=== PATIENT | male | born 1955 | race Asian ===

== ENCOUNTER 2023-12-25 02:52 | Inpatient (IN) | payer MEDICAID ==
[~2023-12-25] VITALS: Ht 162.6 cm; Wt 71.3 kg
[2023-12-25 03:23] LABS: BASOPHILS % (AUTO) 0.5 % (0.0-2.0); EOSINOPHILS % (AUTO) 3.7 % (1.0-6.0); HEMATOCRIT 44.3 % (41-53); HEMOGLOBIN 14.9 g/dL (13.5-17.5); LYMPHOCYTES # (AUTO) 2.3 K/uL (1.0-4.8); LYMPHOCYTES % (AUTO) 36.1 % (22.0-44.0); MEAN CORPUSCULAR HEMOGLOBIN 27.9 pg (26.0-34.0); MEAN CORPUSCULAR HGB CONC 33.6 G/dL (31.0-37.0); MEAN CORPUSCULAR VOLUME 83 fL (80-100); MONOCYTES # (AUTO) 0.6 K/uL (0.1-1.0); MONOCYTES % (AUTO) 9.4 % (2.0-9.0); NEUTROPHILS # (AUTO) 3.2 K/uL (1.8-7.7); NEUTROPHILS % (AUTO) 50.3 % (40.0-70.0); PLATELET COUNT (AUTO) 141 K/uL (150-450); RED BLOOD CELL COUNT(AUTO) 5.34 MIL/uL (4.50-5.90); RED CELL DISTRIBUTION WIDTH 13.3 % (11.5-14.5); WHITE BLOOD COUNT (AUTO) 6.4 K/uL (4.5-11.0)
[2023-12-25 03:35] LABS: ANION GAP 4 mmol/L (8-16); CALCIUM, TOTAL 8.4 mg/dL (8.8-10.5); CARBON DIOXIDE 33 mmol/L (22-29); CHLORIDE 98 mmol/L (98-107); CREATININE 1.11 mg/dL (0.60-1.30); GLOMERULAR FILTR. RATE CALC > 60 mL/min (>60); GLUCOSE,RANDOM 231 mg/dL (70-110); POTASSIUM 3.4 mmol/L (3.5-5.1); SODIUM SERUM 135 mmol/L (136-145); UREA NITROGEN, BLOOD 17 mg/dL (7-18)
[2023-12-25 03:55] LABS: TROPONIN I-HIGH SENSITIVITY 5 ng/L (<76)
[2023-12-25] MEDS: LORazepam 1 MG TABLET PO ONE (04:14)
[2023-12-25] MEDS: TraMADol HCL 50 MG TABLET PO ONE (04:14)
[2023-12-25] MEDS: ASPIRIN 81 MG CHEWABLE TABLET PO ONE (04:15)
[2023-12-25] MEDS ORDERED: IOHEXOL 350 MG/ML 100 ML VIAL ONE (05:07)
[2023-12-25] MEDS ORDERED: SODIUM CHLORIDE 0.9% 100 ML ONE (05:07)
[2023-12-25] MEDS: KETOROLAC TROMETHAMINE 30 MG/ML VIAL IVP ONE (06:33)
[2023-12-25 07:34] LABS: TROPONIN I-HIGH SENSITIVITY 6 ng/L (<76)
[2023-12-25] MEDS ORDERED: POTASSIUM CHL 10 MEQ/WATER 50 ML IV PRN (08:30)
[2023-12-25] MEDS: METOPROLOL TARTRATE 25 MG TABLET PO SCH (08:31)
[2023-12-25 10:50] VITALS: BP 150/90; PULSE 69; RESP 18; TEMP 98.2
[2023-12-25] MEDS ORDERED: MORPHINE SULFATE 2 MG/ML SYRINGE IVP PRN (13:45)
[2023-12-25] MEDS ORDERED: HYDROCODONE/ACETAMINOPHEN 5-325 MG TABLET PO PRN (13:45)
[2023-12-25] MEDS ORDERED: BISACODYL 10 MG RECTAL RECTAL SUPPOSITORY PR PRN (13:45)
[2023-12-25] MEDS ORDERED: ACETAMINOPHEN 325 MG TABLET PO PRN (13:45)
[2023-12-25] MEDS ORDERED: ONDANSETRON HCL 4 MG/2 ML VIAL IVP PRN (13:45)
[2023-12-25] MEDS ORDERED: MAGNESIUM HYDROXIDE SUSPENSION 30 ML UDCUP PO PRN (13:45)
[2023-12-25 15:06] VITALS: BP 124/77; PULSE 70; RESP 16; TEMP 98
[2023-12-25 15:20] VITALS: BP 124/77; PULSE 70; RESP 16; TEMP 98
[2023-12-25] MEDS ORDERED: DAPA10TA PO (15:49)
[2023-12-25] MEDS ORDERED: GLIP-197 PO (15:50)
[2023-12-25] MEDS ORDERED: SEMA7TAB2 PO (15:51)
[2023-12-25] MEDS ORDERED: ICOS1CAP PO (15:56)
[2023-12-25] MEDS ORDERED: ROSU20TA73 PO (15:56)
[2023-12-25] MEDS ORDERED: LISI-660 PO (15:56)
[2023-12-25] MEDS ORDERED: AMLO-258 PO (15:56)
[2023-12-25] MEDS ORDERED: INSU100I26 SQ (15:56)
[2023-12-25] MEDS ORDERED: ERGO500093 PO (15:56)
[2023-12-25] MEDS ORDERED: METF-910 PO (15:56)
[2023-12-25] MEDS ORDERED: OMEP20 PO (15:56)
[2023-12-25] MEDS: POTASSIUM CHLORIDE 20 MEQ ER TABLET PO PRN (16:32)
[2023-12-25] MEDS: HEPARIN SODIUM,PORCINE 5,000 UNITS/ML VIAL SQ SCH (16:32)
[2023-12-25] MEDS ORDERED: DEXTROSE 50%-WATER 25 GM/50 ML SYRINGE IVP PRN (16:45)
[2023-12-25] MEDS ORDERED: GlipiZIDE 10 MG TABLET PO SCH (17:30)
[2023-12-25] MEDS ORDERED: MetFORMIN HCL 500 MG ER TABLET PO SCH (18:00)
[2023-12-25] MEDS: INSULIN LISPRO 100 UNITS/ML SQ PRN (18:42)
[2023-12-25 19:25] VITALS: BP 128/77; PULSE 74; RESP 18; TEMP 97.9
[2023-12-25] MEDS: DOCUSATE SODIUM 100 MG CAPSULE PO SCH (21:00)
[2023-12-25] MEDS ORDERED: ROSUVASTATIN CALCIUM 20 MG TABLET PO SCH (21:00)
[2023-12-25] MEDS: ZOLPIDEM TARTRATE 5 MG TABLET PO PRN (22:56)
[2023-12-25 23:05] VITALS: BP 126/83; PULSE 66; RESP 19; TEMP 97.9
[2023-12-26 00:19] VITALS: BP 121/85; PULSE 70; RESP 18; TEMP 97.9
[2023-12-26 04:15] VITALS: BP 117/74; PULSE 72; RESP 18; TEMP 97.6
[2023-12-26 06:26] LABS: GLUCOMETER DEV NAME(LOC) 5S.2D; GLUCOSE,POINT OF CARE 163 MG/DL (70-110)
[2023-12-26 06:26] LABS: GLUCOMETER DEV NAME(LOC) 5S.2D; GLUCOSE,POINT OF CARE 207 MG/DL (70-110)
[2023-12-26 06:26] LABS: GLUCOMETER DEV NAME(LOC) 5S.2D; GLUCOSE,POINT OF CARE 163 MG/DL (70-110)
[2023-12-26 06:26] LABS: BASOPHILS % (AUTO) 0.6 % (0.0-2.0); EOSINOPHILS % (AUTO) 4.4 % (1.0-6.0); HEMATOCRIT 44.6 % (41-53); LYMPHOCYTES # (AUTO) 1.9 K/uL (1.0-4.8); LYMPHOCYTES % (AUTO) 32.9 % (22.0-44.0); MEAN CORPUSCULAR HEMOGLOBIN 27.8 pg (26.0-34.0); MEAN CORPUSCULAR HGB CONC 33.6 G/dL (31.0-37.0); MEAN CORPUSCULAR VOLUME 83 fL (80-100); MONOCYTES # (AUTO) 0.5 K/uL (0.1-1.0); MONOCYTES % (AUTO) 9.6 % (2.0-9.0); NEUTROPHILS % (AUTO) 52.5 % (40.0-70.0); PLATELET COUNT (AUTO) 138 K/uL (150-450); RED BLOOD CELL COUNT(AUTO) 5.38 MIL/uL (4.50-5.90); RED CELL DISTRIBUTION WIDTH 13.7 % (11.5-14.5); WHITE BLOOD COUNT (AUTO) 5.7 K/uL (4.5-11.0)
[2023-12-26] MEDS ORDERED: OMEPRAZOLE 20 MG CAPSULE PO SCH (06:30)
[2023-12-26 06:39] LABS: ANION GAP 10 mmol/L (8-16); CALCIUM, TOTAL 8.2 mg/dL (8.8-10.5); CARBON DIOXIDE 29 mmol/L (22-29); CHLORIDE 101 mmol/L (98-107); CREATININE 0.78 mg/dL (0.60-1.30); GLOMERULAR FILTR. RATE CALC > 60 mL/min (>60); GLUCOSE,RANDOM 151 mg/dL (70-110); SODIUM SERUM 140 mmol/L (136-145); UREA NITROGEN, BLOOD 14 mg/dL (7-18)
[2023-12-26 06:50] LABS: TROPONIN I-HIGH SENSITIVITY 6 ng/L (<76)
[2023-12-26] MEDS: PANTOPRAZOLE SODIUM 40 MG DR TABLET PO SCH (07:52)
[2023-12-26 08:07] VITALS: BP 113/77; PULSE 69; RESP 18; TEMP 97.7
[2023-12-26] MEDS ORDERED: DAPAGLIFLOZIN PROPANEDIOL 5 MG TABLET PO SCH (09:00)
[2023-12-26] MEDS ORDERED: AmLODIPine BESYLATE 10 MG TABLET PO SCH (09:00)
[2023-12-26] MEDS ORDERED: INSULIN GLARGINE,HUM.REC.ANLOG 100 UNITS/ML SQ SCH (09:00)
[2023-12-26] MEDS ORDERED: LISINOPRIL 5 MG TABLET PO SCH (09:00)
[2023-12-26 11:29] VITALS: BP 145/90; PULSE 67; RESP 18; TEMP 97.9
[2023-12-26] MEDS ORDERED: METO25 PO (11:52)
[2023-12-26] MEDS ORDERED: AZIT500T4 PO (11:53)
[2023-12-26 17:30] LABS: GLUCOMETER DEV NAME(LOC) 5S.1B; GLUCOSE,POINT OF CARE 178 MG/DL (70-110)
[2024-01-01] MEDS ORDERED: ERGOCALCIFEROL (VIT D2) 50,000 UNITS [1,250 MCG] CAPSULE PO SCH (09:00)
== END 2023-12-26 12:50 | disposition home or self-care (01) | DRG 145 ==
LOC: EMS 02:52 → EDH 08:54 → 5S 10:00
PROVIDERS: ADMIT Internal Medicine; ATTEND Internal Medicine
DX: R07.81 Pleurodynia (principal); I20.0 Unstable angina; M94.0 Chondrocostal junction syndrome [Tietze]; E11.65 Type 2 diabetes mellitus with hyperglycemia; E87.6 Hypokalemia; I10 Essential (primary) hypertension; J40 Bronchitis, not specified as acute or chronic; K21.9 Gastro-esophageal reflux disease without esophagitis; R32 Unspecified urinary incontinence; E78.5 Hyperlipidemia, unspecified; Z79.84 Long term (current) use of oral hypoglycemic drugs; Z79.899 Other long term (current) drug therapy
CPT/HCPCS: 71045; 71275; 80048; 82962; 83880; 84132; 84484; 85025; 85379; 93005; 93306; 99281; 99285; G0378; J1644; J1885; J7050; 36415-L1; 36415-TC

== ENCOUNTER 2024-02-02 03:02 | Inpatient (IN) | payer MEDICAID ==
[~2024-02-02] VITALS: Ht 162.6 cm; Wt 67.1 kg
[~2024-02-02 03:02] MED LIST: AZIT500T4 PO; DAPA10TA PO; ERGO500093 PO; GLIP-197 PO; ICOS1CAP PO; INSU100I26 SQ; METF-910 PO; METO25 PO; OMEP20 PO; ROSU20TA73 PO; SEMA7TAB2 PO
[2024-02-02 03:28] LABS: BASOPHILS % (AUTO) 0.4 % (0.0-2.0); EOSINOPHILS % (AUTO) 3.5 % (1.0-6.0); HEMATOCRIT 30.3 % (41-53); HEMOGLOBIN 9.7 g/dL (13.5-17.5); LYMPHOCYTES # (AUTO) 1.7 K/uL (1.0-4.8); LYMPHOCYTES % (AUTO) 45.5 % (22.0-44.0); MEAN CORPUSCULAR HEMOGLOBIN 27.4 pg (26.0-34.0); MEAN CORPUSCULAR HGB CONC 31.9 G/dL (31.0-37.0); MEAN CORPUSCULAR VOLUME 86 fL (80-100); MONOCYTES # (AUTO) 0.3 K/uL (0.1-1.0); MONOCYTES % (AUTO) 7.7 % (2.0-9.0); NEUTROPHILS # (AUTO) 1.6 K/uL (1.8-7.7); NEUTROPHILS % (AUTO) 42.9 % (40.0-70.0); RED BLOOD CELL COUNT(AUTO) 3.54 MIL/uL (4.50-5.90); RED CELL DISTRIBUTION WIDTH 13.3 % (11.5-14.5)
[2024-02-02 03:30] LABS: PLATELET COUNT (AUTO) 80 K/uL (150-450); WHITE BLOOD COUNT (AUTO) 3.8 K/uL (4.5-11.0)
[2024-02-02 03:39] LABS: ANION GAP 14 mmol/L (8-16); CALCIUM, TOTAL 6.7 mg/dL (8.8-10.5); CARBON DIOXIDE 26 mmol/L (22-29); CHLORIDE 104 mmol/L (98-107); CREATININE 0.74 mg/dL (0.60-1.30); GLOMERULAR FILTR. RATE CALC > 60 mL/min (>60); GLUCOSE,RANDOM 186 mg/dL (70-110); POTASSIUM 3.1 mmol/L (3.5-5.1); SODIUM SERUM 144 mmol/L (136-145); UREA NITROGEN, BLOOD 12 mg/dL (7-18)
[2024-02-02] MEDS: FAMOTIDINE 20 MG TABLET PO ONE (03:43)
[2024-02-02] MEDS: MAG HYDROX/ALUMINUM HYD/SIMETH ES 30 ML SUSPENSION UDCUP PO ONE (03:43)
[2024-02-02] MEDS: PANTOPRAZOLE SODIUM 40 MG/VIAL IVP ONE ×2 (03:43→11:02)
[2024-02-02 03:55] LABS: TROPONIN I-HIGH SENSITIVITY 6 ng/L (<76)
[2024-02-02] MEDS: METOPROLOL SUCCINATE 25 MG ER TABLET PO ONE (04:02)
[2024-02-02] MEDS: AmLODIPine BESYLATE 5 MG TABLET PO ONE (04:02)
[2024-02-02] MEDS ORDERED: MORPHINE SULFATE 2 MG/ML SYRINGE IVP PRN (04:45)
[2024-02-02] MEDS ORDERED: ONDANSETRON HCL 4 MG/2 ML VIAL IVP PRN (04:45)
[2024-02-02] MEDS ORDERED: NITROGLYCERIN 0.4 MG SUBLINGUAL TABLET #25 SL PRN (04:45)
[2024-02-02] MEDS ORDERED: POTASSIUM CHL 10 MEQ/WATER 50 ML IV PRN (05:00)
[2024-02-02] MEDS ORDERED: PANTOPRAZOLE SODIUM 40 MG/VIAL IVP ONE (05:00)
[2024-02-02] MEDS: ATORVASTATIN CALCIUM 40 MG TABLET PO ONE (05:02)
[2024-02-02] MEDS: NITROGLYCERIN 2% (1 GM=INCH) OINTMENT PACKET TP SCH (05:03)
[2024-02-02] MEDS: ASPIRIN 81 MG CHEWABLE TABLET PO ONE (05:03)
[2024-02-02 05:25] LABS: LIPASE 36 U/L (16-77)
[2024-02-02 05:27] LABS: % IRON SATURATION 25.7 % (30-44)
[2024-02-02] MEDS ORDERED: SODIUM CHLORIDE 0.9% 100 ML ONE (05:29)
[2024-02-02] MEDS ORDERED: IOHEXOL 350 MG/ML 100 ML VIAL ONE (05:29)
[2024-02-02 05:43] LABS: BASOPHILS % (AUTO) 0.4 % (0.0-2.0); EOSINOPHILS % (AUTO) 3.4 % (1.0-6.0); HEMATOCRIT 46.7 % (41-53); HEMOGLOBIN 15.4 g/dL (13.5-17.5); LYMPHOCYTES # (AUTO) 1.7 K/uL (1.0-4.8); LYMPHOCYTES % (AUTO) 32.7 % (22.0-44.0); MEAN CORPUSCULAR HEMOGLOBIN 27.6 pg (26.0-34.0); MEAN CORPUSCULAR VOLUME 84 fL (80-100); MONOCYTES # (AUTO) 0.4 K/uL (0.1-1.0); MONOCYTES % (AUTO) 8.7 % (2.0-9.0); NEUTROPHILS # (AUTO) 2.8 K/uL (1.8-7.7); NEUTROPHILS % (AUTO) 54.8 % (40.0-70.0); PLATELET COUNT (AUTO) 124 K/uL (150-450); RED BLOOD CELL COUNT(AUTO) 5.57 MIL/uL (4.50-5.90); RED CELL DISTRIBUTION WIDTH 13.8 % (11.5-14.5); WHITE BLOOD COUNT (AUTO) 5.1 K/uL (4.5-11.0)
[2024-02-02] MEDS ORDERED: HEPARIN SODIUM,PORCINE 5,000 UNITS/ML VIAL SQ SCH (08:00)
[2024-02-02] MEDS: DOCUSATE SODIUM 100 MG CAPSULE PO SCH (11:01)
[2024-02-02 11:22] VITALS: BP 125/77; PULSE 76; RESP 18; TEMP 98.2; O2SAT 97
[2024-02-02 11:46] LABS: GLUCOMETER DEV NAME(LOC) 5S.1C; GLUCOSE,POINT OF CARE 191 MG/DL (70-110)
[2024-02-02] MEDS: POTASSIUM CHLORIDE 20 MEQ ER TABLET PO PRN (12:04)
[2024-02-02] MEDS ORDERED: DEXTROSE 50%-WATER 25 GM/50 ML SYRINGE IVP PRN (13:00)
[2024-02-02 14:45] VITALS: BP 123/74; PULSE 74; RESP 19; TEMP 98; O2SAT 98
[2024-02-02] MEDS: INSULIN LISPRO 100 UNITS/ML SQ PRN (17:38)
[2024-02-02 19:15] VITALS: BP 113/66; PULSE 78; RESP 18; TEMP 97.8; O2SAT 95
[2024-02-02 20:21] LABS: GLUCOMETER DEV NAME(LOC) 5S.1C; GLUCOSE,POINT OF CARE 193 MG/DL (70-110)
[2024-02-02] MEDS: ACETAMINOPHEN 325 MG TABLET PO PRN (20:32)
[2024-02-02] MEDS: METOPROLOL TARTRATE 25 MG TABLET PO SCH (20:32)
[2024-02-02 21:10] LABS: GLUCOMETER DEV NAME(LOC) 5N.2C; GLUCOSE,POINT OF CARE 207 MG/DL (70-110)
[2024-02-03 00:54] VITALS: BP 105/61; PULSE 73; RESP 18; TEMP 97.8; O2SAT 98
[2024-02-03 05:44] VITALS: BP 122/72; PULSE 66; RESP 18; TEMP 97.6; O2SAT 97
[2024-02-03 07:21] LABS: BASOPHILS % (AUTO) 0.3 % (0.0-2.0); EOSINOPHILS % (AUTO) 2.9 % (1.0-6.0); HEMATOCRIT 45.4 % (41-53); HEMOGLOBIN 15.1 g/dL (13.5-17.5); LYMPHOCYTES # (AUTO) 2.2 K/uL (1.0-4.8); LYMPHOCYTES % (AUTO) 30.7 % (22.0-44.0); MEAN CORPUSCULAR HEMOGLOBIN 27.8 pg (26.0-34.0); MEAN CORPUSCULAR HGB CONC 33.3 G/dL (31.0-37.0); MEAN CORPUSCULAR VOLUME 83 fL (80-100); MONOCYTES # (AUTO) 0.6 K/uL (0.1-1.0); MONOCYTES % (AUTO) 8.6 % (2.0-9.0); NEUTROPHILS # (AUTO) 4.1 K/uL (1.8-7.7); NEUTROPHILS % (AUTO) 57.5 % (40.0-70.0); PLATELET COUNT (AUTO) 124 K/uL (150-450); RED BLOOD CELL COUNT(AUTO) 5.44 MIL/uL (4.50-5.90); RED CELL DISTRIBUTION WIDTH 14.1 % (11.5-14.5); WHITE BLOOD COUNT (AUTO) 7.2 K/uL (4.5-11.0)
[2024-02-03 07:26] LABS: ANION GAP 9 mmol/L (8-16); CALCIUM, TOTAL 8.3 mg/dL (8.8-10.5); CARBON DIOXIDE 28 mmol/L (22-29); CHLORIDE 100 mmol/L (98-107); CREATININE 0.86 mg/dL (0.60-1.30); GLOMERULAR FILTR. RATE CALC > 60 mL/min (>60); GLUCOSE,RANDOM 162 mg/dL (70-110); SODIUM SERUM 137 mmol/L (136-145); UREA NITROGEN, BLOOD 17 mg/dL (7-18)
[2024-02-03 07:36] LABS: TROPONIN I-HIGH SENSITIVITY 6 ng/L (<76)
[2024-02-03] MEDS: HEPARIN SODIUM,PORCINE 5,000 UNITS/ML VIAL SQ SCH (08:00)
[2024-02-03] MEDS: PANTOPRAZOLE SODIUM 40 MG DR TABLET PO SCH (08:08)
[2024-02-03] MEDS: ASPIRIN 81 MG CHEWABLE TABLET PO SCH (08:09)
[2024-02-03] MEDS: ATORVASTATIN CALCIUM 40 MG TABLET PO SCH (08:09)
[2024-02-03 08:31] VITALS: BP 120/68; PULSE 71; RESP 18; TEMP 98.1; O2SAT 98
[2024-02-03 11:06] LABS: GLUCOMETER DEV NAME(LOC) 5S.1C; GLUCOSE,POINT OF CARE 175 MG/DL (70-110)
[2024-02-03 11:31] VITALS: BP 112/70; PULSE 67; RESP 18; TEMP 97.3; O2SAT 96
[2024-02-03] MEDS ORDERED: ASPI-1450 PO (11:56)
[2024-02-03 12:56] LABS: GLUCOMETER DEV NAME(LOC) 5S.1C; GLUCOSE,POINT OF CARE 164 MG/DL (70-110)
== END 2024-02-03 12:40 | disposition home or self-care (01) | DRG 198 ==
LOC: EMS 03:02 → EDH 07:03 → 5S 10:00
PROVIDERS: ADMIT Internal Medicine; ATTEND Internal Medicine
DX: I25.110 Atherosclerotic heart disease of native coronary artery with unstable angina pectoris (principal); D61.818 Other pancytopenia; E11.9 Type 2 diabetes mellitus without complications; D64.9 Anemia, unspecified; D72.819 Decreased white blood cell count, unspecified; E78.5 Hyperlipidemia, unspecified; I16.0 Hypertensive urgency; I10 Essential (primary) hypertension; Z79.4 Long term (current) use of insulin; Z79.899 Other long term (current) drug therapy; Z79.84 Long term (current) use of oral hypoglycemic drugs
CPT/HCPCS: 71045; 74177; 80048; 82962; 83036; 83540; 83550; 83690; 83735; 83880; 84132; 84484; 85025; 85045; 87081; 93005; 93306; 99285; C9113; J1644; J7050; 36415-L1; 36415-TC

== ENCOUNTER 2024-02-04 16:05 | Inpatient (IN) | payer MEDICAID ==
[~2024-02-04] VITALS: Ht 175.3 cm; Wt 64.9 kg
[~2024-02-04 16:05] MED LIST changes: +ASPI-1450 PO
[2024-02-04 18:15] LABS: BASOPHILS % (AUTO) 0.4 % (0.0-2.0); EOSINOPHILS % (AUTO) 1.2 % (1.0-6.0); HEMATOCRIT 49.3 % (41-53); HEMOGLOBIN 16.5 g/dL (13.5-17.5); LYMPHOCYTES # (AUTO) 1.7 K/uL (1.0-4.8); LYMPHOCYTES % (AUTO) 17.4 % (22.0-44.0); MEAN CORPUSCULAR HEMOGLOBIN 27.9 pg (26.0-34.0); MEAN CORPUSCULAR HGB CONC 33.5 G/dL (31.0-37.0); MEAN CORPUSCULAR VOLUME 83 fL (80-100); MONOCYTES # (AUTO) 0.8 K/uL (0.1-1.0); MONOCYTES % (AUTO) 8.2 % (2.0-9.0); NEUTROPHILS # (AUTO) 7.1 K/uL (1.8-7.7); NEUTROPHILS % (AUTO) 72.8 % (40.0-70.0); PLATELET COUNT (AUTO) 136 K/uL (150-450); RED BLOOD CELL COUNT(AUTO) 5.91 MIL/uL (4.50-5.90); RED CELL DISTRIBUTION WIDTH 13.8 % (11.5-14.5); WHITE BLOOD COUNT (AUTO) 9.7 K/uL (4.5-11.0)
[2024-02-04 18:17] LABS: COVID AG,FIA SOURCE NASAL SWAB
[2024-02-04 18:25] LABS: ANION GAP 11 mmol/L (8-16); CALCIUM, TOTAL 9.1 mg/dL (8.8-10.5); CARBON DIOXIDE 28 mmol/L (22-29); CHLORIDE 100 mmol/L (98-107); CREATININE 0.96 mg/dL (0.60-1.30); GLOMERULAR FILTR. RATE CALC > 60 mL/min (>60); GLUCOSE,RANDOM 151 mg/dL (70-110); POTASSIUM 4.3 mmol/L (3.5-5.1); SODIUM SERUM 139 mmol/L (136-145); UREA NITROGEN, BLOOD 16 mg/dL (7-18)
[2024-02-04 18:35] LABS: ALCOHOL, BLOOD (SERUM) < 3 mg/dL (0-10)
[2024-02-04 18:40] LABS: SARS-COV2 (COVID) ANTIGEN,FIA Negative (Negative)
[2024-02-04] MEDS: ACETAMINOPHEN 325 MG TABLET PO ONE (19:19)
[2024-02-04] MEDS: METOCLOPRAMIDE HCL 5 MG/ML 2 ML VIAL IVP ONE (19:22)
[2024-02-04] MEDS: SODIUM CHLORIDE 0.9% 1,000 ML IV ONE (19:22)
[2024-02-04] MEDS: KETOROLAC TROMETHAMINE 30 MG/ML VIAL IVP ONE (20:22)
[2024-02-04] MEDS ORDERED: LORazepam 2 MG TABLET PO PRN (21:45)
[2024-02-04] MEDS ORDERED: ZOLPIDEM TARTRATE 10 MG TABLET PO PRN (21:45)
[2024-02-04] MEDS ORDERED: HALOPERIDOL 5 MG TABLET PO PRN (21:45)
[2024-02-05 03:31] VITALS: BP 147/85; PULSE 80; RESP 18; TEMP 97.6; O2SAT 99
[2024-02-05 04:17] VITALS: BP 147/85; PULSE 80; RESP 17; TEMP 97.6; O2SAT 99
[2024-02-05 08:20] LABS: ALCOHOL, URINE DRUG SCREEN NEGATIVE (NEGATIVE); AMPHET/METH SCREEN,URINE NEGATIVE (NEGATIVE); BARBITURATE SCREEN, URINE NEGATIVE (NEGATIVE); BENZODIAZEPINES SCREEN,URINE NEGATIVE (NEGATIVE); CANNABINOID SCREEN,URINE NEGATIVE (NEGATIVE); COCAINE SCREEN,URINE NEGATIVE (NEGATIVE); METHADONE SCREEN, URINE NEGATIVE (NEGATIVE); OPIATE SCREEN,URINE NEGATIVE (NEGATIVE); PHENCYCLIDINE SCREEN,URINE NEGATIVE (NEGATIVE)
[2024-02-05] MEDS ORDERED: MAG HYDROX/ALUMINUM HYD/SIMETH ES 30 ML SUSPENSION UDCUP PO PRN (08:45)
[2024-02-05] MEDS ORDERED: LOPERAMIDE HCL 2 MG CAPSULE PO PRN (08:45)
[2024-02-05] MEDS ORDERED: DOCUSATE SODIUM 100 MG CAPSULE PO PRN (08:45)
[2024-02-05] MEDS ORDERED: BACITRACIN 28 GM OINTMENT TP PRN (08:45)
[2024-02-05] MEDS ORDERED: BENZOCAINE/MENTHOL LOZENGE PO PRN (08:45)
[2024-02-05] MEDS ORDERED: ALBUTEROL SULFATE HFA 90 MCG/PUFF 8 GM INHALER IH PRN (08:45)
[2024-02-05] MEDS ORDERED: PETROLATUM,WHITE 28 GM JELLY TP PRN (08:45)
[2024-02-05] MEDS ORDERED: ACETAMINOPHEN 325 MG TABLET PO PRN (08:45)
[2024-02-05] MEDS ORDERED: OMEPRAZOLE 20 MG CAPSULE PO PRN (08:45)
[2024-02-05] MEDS ORDERED: CloNIDine HCL 0.1 MG TABLET PO PRN (08:45)
[2024-02-05] MEDS ORDERED: ONDANSETRON 4 MG TABLET PO PRN (08:45)
[2024-02-05] MEDS ORDERED: IBUPROFEN 600 MG TABLET PO PRN (08:45)
[2024-02-05] MEDS ORDERED: DEXTROSE 50%-WATER 25 GM/50 ML SYRINGE IVP PRN (08:45)
[2024-02-05] MEDS ORDERED: MAGNESIUM HYDROXIDE SUSPENSION 30 ML UDCUP PO PRN (08:45)
[2024-02-05] MEDS ORDERED: DAPAGLIFLOZIN PROPANEDIOL 5 MG TABLET PO SCH (09:00)
[2024-02-05] MEDS ORDERED: METF-1211 PO (09:11)
[2024-02-05] MEDS ORDERED: GLIP10TA10 PO (09:11)
[2024-02-05] MEDS: METOPROLOL TARTRATE 25 MG TABLET PO SCH (09:25)
[2024-02-05] MEDS: DAPAGLIFLOZIN PROPANEDIOL 5 MG TABLET PO SCH (09:26)
[2024-02-05 10:35] VITALS: BP 144/85; PULSE 84; RESP 18; TEMP 97.9; O2SAT 99
[2024-02-05 10:52] LABS: APPEARANCE,URINE CLEAR (CLEAR); BILIRUBIN,URINE NEGATIVE (NEGATIVE); COLOR,URINE LIGHT YELLOW (YELLOW); GLUCOSE, URINE (UA) >=1000 mg/dL (NEGATIVE); LEUKOCYTE ESTERASE ,URINE NEGATIVE (NEGATIVE); NITRATE,URINE NEGATIVE (NEGATIVE); OCCULT BLOOD,URINE NEGATIVE (NEGATIVE); PH,URINE 5.5 (5.0-8.0); PROTEIN,URINE NEGATIVE (NEGATIVE); SPECIFIC GRAVITIY, URINE 1.029 (1.003-1.030); UROBILINOGEN,URINE <=1.0 mg/dL (<=1.0)
[2024-02-05 11:11] LABS: BACTERIA,URINE None Seen /HPF (None Seen); RBC,URINE None Seen /HPF (0-2); WBC,URINE None Seen /HPF (0-5)
[2024-02-05] MEDS: INSULIN LISPRO 100 UNITS/ML SQ PRN (11:36)
[2024-02-05 11:50] LABS: GLUCOMETER DEV NAME(LOC) 3E.I 2; GLUCOSE,POINT OF CARE 192 MG/DL (70-110)
[2024-02-05] MEDS ORDERED: INSLAN SQ (13:40)
[2024-02-05] MEDS ORDERED: GlipiZIDE 5 MG TABLET PO SCH (17:00)
[2024-02-05] MEDS ORDERED: MetFORMIN HCL 500 MG TABLET PO SCH (17:30)
[2024-02-05] MEDS ORDERED: INSULIN GLARGINE,HUM.REC.ANLOG 100 UNITS/ML SQ SCH (21:00)
[2024-02-05] MEDS ORDERED: ROSUVASTATIN CALCIUM 20 MG TABLET PO SCH (21:00)
== END 2024-02-05 16:10 | disposition home or self-care (01) | DRG 754 ==
LOC: EMS 16:07 → 3EI 02-05 00:23
PROVIDERS: ADMIT Psychiatry & Neurology Psychiatry; ATTEND Psychiatry & Neurology Psychiatry
DX: F32.9 Major depressive disorder, single episode, unspecified (principal); R45.851 Suicidal ideations; F22 Delusional disorders; E11.9 Type 2 diabetes mellitus without complications; E78.5 Hyperlipidemia, unspecified; Z20.822 Contact with and (suspected) exposure to COVID-19; I10 Essential (primary) hypertension; K21.9 Gastro-esophageal reflux disease without esophagitis; F41.9 Anxiety disorder, unspecified; K59.00 Constipation, unspecified; G47.00 Insomnia, unspecified
CPT/HCPCS: 70450; 80048; 80307; 81001; 82962; 85025; 87081; 93005; 99285; G0480; J1815; J1885; J2765; J7030